=== PATIENT | male | born 1955 | race Caucasian/White ===

== ENCOUNTER 2021-03-17 07:43 | Emergency (ER) | payer BC, MEDICARE ==
[~2021-03-17] VITALS: Ht 180.3 cm; Wt 99.8 kg
[2021-03-17 08:22] VITALS: BP 158/78
[2021-03-17 08:25] VITALS: BP 158/78
== END 2021-03-17 08:25 | disposition home or self-care (01) ==
LOC: MED 07:43
DX: R51.9 Headache, unspecified (principal); R06.02 Shortness of breath; Z20.822 Contact with and (suspected) exposure to COVID-19
CPT/HCPCS: 99283